=== PATIENT | male | born 1990 ===

== ENCOUNTER 2020-05-03 00:56 | Observation (INO) | payer OTHER ==
--- NOTE | 2020-05-03 01:01 | Emergency Department Report ---
Blank Doc - Documentation Documentation: 29-year-old male that presents with right-sided facial drooping and right-sided weakness that occurred (2 hours prior to arrival). 1- This initial assessment/diagnostic orders/clinical plan/ treatment(s) is/are subject to change based on pt's health status, clinical progression and re- assessment by fellow clinical providers in the ED. Further treatment and workup at subsequent clinical provers discretion. Patient/guardians urged not to elope from ED as their condition may be serious if not clinically assessed and managed. 2-stroke protocol initiated
[2020-05-03 01:17] LABS: Basophils # (Auto) 0.1 K/mm3 (0.0-0.1); Basophils % (Auto) 0.9 % (0.0-1.8); Eosinophils # (Auto) 0.2 K/mm3 (0.0-0.4); Eosinophils % (Auto) 1.6 % (0.0-4.3); Hematocrit 46.1 % (35.5-45.6); Hemoglobin 15.9 gm/dl (11.8-15.2); Lymphocytes # (Auto) 2.6 K/mm3 (1.2-5.4); Lymphocytes % (Auto) 25.5 % (13.4-35.0); Mean Corpuscular HGB Conc 35 % (32-34); Mean Corpuscular Volume 88 fl (84-94); Monocytes # (Auto) 0.8 K/mm3 (0.0-0.8); Monocytes % (Auto) 7.7 % (0.0-7.3); Platelet Count 261 K/mm3 (140-440); Red Blood Count 5.26 M/mm3 (3.65-5.03); Red Cell Distribution Width 13.4 % (13.2-15.2)
--- NOTE | 2020-05-03 01:32 | Cat Scan Report ---
CT HEAD WITHOUT CONTRAST INDICATION / CLINICAL INFORMATION: CODE STROKE PROTOCOL!!! Stroke-Like symptoms. Right-sided weakness . TECHNIQUE: All CT scans at this location are performed using CT dose reduction for ALARA by means of automated exposure control. COMPARISON: None available. FINDINGS: HEMORRHAGE: None. EXTRA-AXIAL SPACES: Cystic lesion in the anterior right middle cranial fossa adjacent to the anterior temporal lobe likely representing benign arachnoid cyst. VENTRICULAR SYSTEM: Normal in size and morphology for the patient's age. CEREBRAL PARENCHYMA: No significant abnormality. No acute territorial infarct. MIDLINE SHIFT / HERNIATION: None. CEREBELLUM / BRAINSTEM: No significant abnormality. ORBITS: Normal as visualized. SOFT TISSUES: No significant abnormality. SKULL: No significant abnormality. PARANASAL SINUSES / MASTOID AIR CELLS: Normal as visualized. ADDITIONAL FINDINGS: None. IMPRESSION: 1. No acute intracranial abnormality. 2. Probable benign arachnoid cyst in the anterior right middle cranial fossa. CODE STROKE: Time of Communication ([employer]ING [employer] LEADER/CDT): 12:27 AM Licensed Practitioner Receiving Report: Dr. Oviedo in the ED Signer Name: Muriel Esquivel MD Signed: 05/03/2020 1:28 AM Workstation Name: [id number]
[2020-05-03 01:37] LABS: Creatine Kinase MB 4.9 ng/mL (0.0-4.0); INR 0.91 (0.87-1.13)
[2020-05-03 01:38] LABS: Alanine Aminotransferase 15 units/L (7-56); Albumin 4.8 g/dL (3.9-5); BUN/Creatinine Ratio 13; Blood Urea Nitrogen 12 mg/dL (9-20); Calcium 9.4 mg/dL (8.4-10.2); Hemolysis Index 5; Partial Thromboplastin Time 31.1 Sec. (24.2-36.6); Thrombin Time 17.9 Sec. (15.1-19.6)
--- NOTE | 2020-05-03 01:53 | Emergency Department Report ---
ED Neuro Deficit HPI - General Chief Complaint: Neuro Symptoms/Deficit Stated Complaint: STROKE ALERT Time Seen by Provider: 05/03/20 00:59 Source: patient, family Mode of arrival: Ambulatory Limitations: Physical Limitation - History of Present Illness Initial Comments: [facility] TeleStroke Metrics: LKW: 2300 Door Time: 0056 [facility] Contacted: 0057 [facility] at Bedside: 0102 NIHSS: 0133 Decision on Alteplase: Patient has declined IV alteplase administration due to concerns of internal bleeding. He has opted for a more conservative approach. Interventional Candidate: Not a candidate as his symptoms are not consistent with a large vessel proximal occlusion. Chief Complaint: Left-sided facial spasm, left-sided neck pain, and left arm weakness. HPI: Asked to see this patient in emergent telemedicine consultation utilizing interactive audio and video technologies. Consultation was performed with assistance of ancillary / medical staff at bedside. Verbal consent to perform the examination with telemedicine was obtained. Patient agreed to proceed with the consultation for acute stroke protocol. 29-year-old right-handed male who comes to the emergency room with his [id number] for acute left facial cramping and left arm weakness. Patient does not take any blood thinners or aspirin. He is on no medications. He denies any significant past medical history. However, [id number] noted that he had some type of heart problem that was worked up in the past. Patient has never had a stroke or migraine headache before. Patient is an active smoker, and also uses methamphetamines. Slovenian translation was assisted through the ER team and [id number]. Apparently, the patient was on FaceTime with his mother at around 11 PM. He then got some bad news and afterwards became acutely short of breath and hot all over. He then developed left-sided neck cramping which then radiated into both his legs. He then at some point developed left arm weakness, and the left side of his face appeared twisted and he was having spasms. He also developed left facial numbness and numbness along the left side of his tongue. [id number] brought him to the emergency room for further evaluation. Patient has never had symptoms like this before. Currently on examination, the patient was completely ambulatory on his own. He was able to transfer and walk from his wheelchair to the CT scanner table. He was able to follow commands. He had no focal motor or sensory deficits in his arms or legs. He appeared to have some type of spasm in the left lower facial area. When I asked him to smile, he would not open his mouth or smile at all. However he was able to stick out his tongue and it was midline. He still reported cramping and pain along the left side of his neck. He also still reported left facial numbness. Head CT showed no acute findings. I reviewed with the patient and his family about the availability of IV alteplase. I reviewed with him about some of the potential side effects of IV alteplase to include an approximate 6% risk of symptomatic intracranial hemorrhage, internal bleeding, and/or angioedema. At the end of the day, patient has declined IV alteplase administration due to concerns of internal bleeding. He has opted for a more conservative approach. PMH: Denies. SOC: Positive for tobacco abuse, alcohol use, and methamphetamine use. He normally lives alone. FMH: Maternal grandmother with a stroke before. ROS: 13 point review of systems were reviewed with the patient, and are all negative with the exception of the aforementioned in the history of present illness. VS: Nothing charted yet Exam: Patient is in no apparent distress. Patient appears as stated age. No obvious acute respiratory or cardiac distress. Patient is well groomed and well-nourished. 1a- LOC: Keenly responsive - 0 1b- LOC questions: Answers both questions correctly - 0 1c- LOC commands- Performs both tasks correctly- 0 2- Gaze: Normal; no gaze paresis or gaze deviation - 0 3- Visual Blanchard: normal, no Visual field deficit - 0 4- Facial movements: left facial palsy - 1 5- Upper limb motor No arm drift - 0 6- Lower limb motor No leg drift - 0 7- Limb Coordination: absent ataxia - 0 8- Sensory: left facial sensory loss - 1 9- Language - No aphasia - 0 10- Speech - moderate dysarthria - 1 11- Neglect / Extinction - none found - 0 NIHSS score: 3 Diagnostic Data: CT head showed no acute intracranial hemorrhage, mass, or large territory stroke. There is an incidental arachnoid cyst within the right middle cranial fossa. Blood glucose 86 Medical Data Reviewed: 1.Data?reviewed include clinical labs, radiology,?and medical tests; 2.Tests?results discussed w/performing or interpreting physician; 3.Obtaining/reviewing old medical records; 4.Obtaining?case history from another source; 5.Independent?review of image, tracing, or specimen. Medical Decision Making: - Extensive number of diagnosis or management options are considered below. - Extensive amount of complex data reviewed. - High risk of complication and/or morbidity or mortality are associated with differential diagnostic considerations below. - There may be?uncertain?outcome and increased probability of prolonged functional impairment or high probability of severe prolonged functional impairment associated with some of these differential diagnosis. Differential Diagnosis for Stroke: 1.?Cardioembolic?stroke 2. Small vessel disease/lacune 3. Thromboembolic, xkkabu-gb-ebncod mechanism 4.?Hypercoagulable?state-related infarct 5. Transient ischemic attack 6. Thrombotic mechanism, large artery disease Assessment: 1. Left facial spasm and numbness 2. Left-sided neck pain and spasms 3. Polysubstance abuse with tobacco and methamphetamine abuse Recommendations: Patient can be admitted to the hospital for further work-up of his symptoms Consult inpatient neurology team to assist with the evaluation and management Check MRI brain with and without contrast to rule out any acute intracranial process or inflammatory process Check MRI cervical spine with and without contrast to rule out any acute cervical cord process or inflammatory process Check hemoglobin A1c, lipid panel, urine drug screen, total CPK, and ESR Consult speech therapy Check echocardiogram to gauge his cardiac function Maintain the patient on telemetry to look for paroxysmal cardiac arrhythmias Continue supportive care Plan of care was discussed with the patient and his [id number]-[id number] Thank you for allowing [facility] to participate in the care of your patient. Please call me, Dr. Gibson, with any questions at [phone]. Case discussed with the ER staff and Dr. Oviedo. Critical Care notation: I was called to see this critical patient emergently. I personally evaluated this critical patient for acute stroke evaluation, and determining their eligibility for IV Alteplase and interventional therapies. I have spent approximately 37 minutes with the patient, including time at bedside, time discussing the case with other physicians, reviewing plan of care, and time independently reviewing the records and scans. ED Review of Systems ROS: Stated complaint: STROKE ALERT Other details as noted in HPI ED Neuro Physical Exam - General Limitations: Physical Limitation Suspected Stroke: No ED Course Vital Signs 05/03/20 01:01 Temperature 97.9 F Pulse Rate 102 H Respiratory 16 Rate Blood Pressure 145/88 [Right] O2 Sat by Pulse 95 Oximetry - Lab Data Result diagrams: 05/03/20 01:05 05/03/20 01:05 Lab Results 05/03/20 05/03/20 05/03/20 Range/Units 00:58 01:05 01:05 WBC 10.2 (4.5-11.0) K/mm3 RBC 5.26 H (3.65-5.03) M/mm3 Hgb 15.9 H (11.8-15.2) gm/dl Hct 46.1 H (35.5-45.6) % MCV 88 (84-94) fl MCH 30 (28-32) pg MCHC 35 H (32-34) % RDW 13.4 (13.2-15.2) % Plt Count 261 (140-440) K/mm3 Lymph % (Auto) 25.5 (13.4-35.0) % [place] % (Auto) 7.7 H (0.0-7.3) % Eos % (Auto) 1.6 (0.0-4.3) % Baso % (Auto) 0.9 (0.0-1.8) % Lymph # (Auto) 2.6 (1.2-5.4) K/mm3 [place] # (Auto) 0.8 (0.0-0.8) K/mm3 Eos # (Auto) 0.2 (0.0-0.4) K/mm3 Baso # (Auto) 0.1 (0.0-0.1) K/mm3 Seg Neutrophils % 64.3 (40.0-70.0) % Seg Neutrophils # 6.5 (1.8-7.7) K/mm3 PT 12.1 L (12.2-14.9) Sec. INR 0.91 (0.87-1.13) APTT 31.1 (24.2-36.6) Sec. Thrombin Time 17.9 (15.1-19.6) Sec. Sodium (137-145) mmol/L Potassium (3.6-5.0) mmol/L Chloride (98-107) mmol/L Carbon Dioxide (22-30) mmol/L Anion Gap mmol/L BUN (9-20) mg/dL Creatinine (0.8-1.3) mg/dL Estimated GFR ml/min BUN/Creatinine Ratio % Glucose (75-100) mg/dL POC Glucose 86 (70-105) mg/dL Calcium (8.4-10.2) mg/dL Total Bilirubin (0.1-1.2) mg/dL AST (5-40) units/L ALT (7-56) units/L Alkaline Phosphatase (35-129) units/L Total Creatine Kinase (55-170) units/L CK-MB (CK-2) (0.0-4.0) ng/mL CK-MB (CK-2) Rel Index (0-4) Troponin T (0.00-0.029) ng/mL Total Protein (6.3-8.2) g/dL Albumin (3.9-5) g/dL Albumin/Globulin Ratio % Plasma/Serum Alcohol (0-0.07) % 05/03/20 05/03/20 05/03/20 Range/Units 01:05 01:05 01:05 WBC (4.5-11.0) K/mm3 RBC (3.65-5.03) M/mm3 Hgb (11.8-15.2) gm/dl Hct (35.5-45.6) % MCV (84-94) fl MCH (28-32) pg MCHC (32-34) % RDW (13.2-15.2) % Plt Count (140-440) K/mm3 Lymph % (Auto) (13.4-35.0) % [place] % (Auto) (0.0-7.3) % Eos % (Auto) (0.0-4.3) % Baso % (Auto) (0.0-1.8) % Lymph # (Auto) (1.2-5.4) K/mm3 [place] # (Auto) (0.0-0.8) K/mm3 Eos # (Auto) (0.0-0.4) K/mm3 Baso # (Auto) (0.0-0.1) K/mm3 Seg Neutrophils % (40.0-70.0) % Seg Neutrophils # (1.8-7.7) K/mm3 PT (12.2-14.9) Sec. INR (0.87-1.13) APTT (24.2-36.6) Sec. Thrombin Time (15.1-19.6) Sec. Sodium 138 (137-145) mmol/L Potassium 3.6 (3.6-5.0) mmol/L Chloride 102.2 (98-107) mmol/L Carbon Dioxide 21 L (22-30) mmol/L Anion Gap 18 mmol/L BUN 12 (9-20) mg/dL Creatinine 0.9 (0.8-1.3) mg/dL Estimated GFR > 60 ml/min BUN/Creatinine Ratio 13 % Glucose 99 (75-100) mg/dL POC Glucose (70-105) mg/dL Calcium 9.4 (8.4-10.2) mg/dL Total Bilirubin 0.20 (0.1-1.2) mg/dL AST 25 (5-40) units/L ALT 15 (7-56) units/L Alkaline Phosphatase 100 (35-129) units/L Total Creatine Kinase 211 H (55-170) units/L CK-MB (CK-2) 4.9 H (0.0-4.0) ng/mL CK-MB (CK-2) Rel Index 2.3 (0-4) Troponin T < 0.010 (0.00-0.029) ng/mL Total Protein 8.0 (6.3-8.2) g/dL Albumin 4.8 (3.9-5) g/dL Albumin/Globulin Ratio 1.5 % Plasma/Serum Alcohol 0.05 (0-0.07) % Critical care attestation.: If time is entered above; I have spent that time in minutes in the direct care of this critically ill patient, excluding procedure time. ED Disposition Clinical Impression: Muscle spasm Disposition: OP ADMIT IP TO THIS HOSP Is pt being admited?: Yes Does the pt Need Aspirin: No Condition: Stable
--- NOTE | 2020-05-03 02:05 | Cat Scan Report ---
CT angio head INDICATION / CLINICAL INFORMATION: 29 years Male; Post-Code Stroke Protocol!!! Stroke-Like Symptoms. TECHNIQUE: Thin cut axial images obtained through the head during IV bolus contrast administration. S agittal, coronal, and 3 plane MIP reconstructions performed by the technologist. NASCET type criteria used evaluate stenoses. Automated exposure control utilized for radiation reduction purposes. Is dulce maria e degree of motion artifact. COMPARISON: CT-same day FINDINGS: INTERNAL CAROTID ARTERIES: No significant narrowing appreciated. VERTEBROBASILAR SYSTEM: No significant narrowing appreciated. DISTAL BRANCHES: Distal branches of the anterior, middle, and posterior cerebral arteries are fairly symmetric in appearance and number. Because of motion, its difficult to evaluate for small areas of stenoses and more peripheral branches , particularly in the mid to distal M1 and MCA trifurcation regions, bilaterally-right greater than l eft. Thrombus in these regions cannot entirely be excluded. ANEURYSM: None identified. ADDITIONAL FINDINGS: Remainder of the surrounding soft tissues are grossly normal. IMPRESSION: 1. No dominant stenosis seen. 2. The possibility of some component of thrombus in the distal M1 and right MCA trifurcation region c annot entirely be excluded, although believe this finding is most likely related to artifact Signer Name: Bird Ring MD, III Signed: 05/03/2020 2:00 AM Workstation Name: [id number]
--- NOTE | 2020-05-03 02:07 | Cat Scan Report ---
CT angio neck INDICATION / CLINICAL INFORMATION: 29 years Male; Post-Code Stroke Protocol!!! Stroke-Like Symptoms. TECHNIQUE: Thin cut axial images obtained through the head during IV bolus contrast administration. S agittal, coronal, and 3 plane MIP reconstructions performed by the technologist. NASCET type criteria used evaluate stenoses. All CT scans at this location are performed using CT dose reduction for ALAR A by means of automated exposure control. Some motion artifact present. COMPARISON: None available. FINDINGS: ARCH: Bovine arch configuration noted. CAROTID ARTERIES: The visualized common and internal carotid arteries are widely patent. VERTEBRAL ARTERIES: Codominant vertebral system seen. No significant stenosis appreciated. ADDITIONAL FINDINGS: Remainder of the surrounding soft tissues are grossly normal. IMPRESSION: No significant stenosis appreciated on this CTA of the neck. Signer Name: Bird Ring MD, III Signed: 05/03/2020 2:02 AM Workstation Name: [id number]
--- NOTE | 2020-05-03 03:01 | Emergency Department Report ---
HPI - General Chief Complaint: Neuro Symptoms/Deficit Time Seen by Provider: 05/03/20 00:59 - HPI HPI: Room 36 The patient is a 29-year-old male present with a chief complaint of left-sided weakness. The patient was reportedly on the telephone when he got some "bad news." The patient began to feel short of breath and then hot and then developed pain in his neck. Patient did complain of bilateral lower extremity pain and left upper extremity weakness. The patient states his left face became numb and the left side of his tongue became numb. Symptoms began at 23: 00 this evening. The patient admits to methamphetamine use and states he last used this afternoon at approximately 15:30 ED Past Medical Hx - Past Medical History Previous Medical History?: Yes Additional medical history: "heart condition, unknown" - Surgical History Past Surgical History?: No - Family History Family history: no significant - Social History Smoking Status: Current Some Day Smoker Substance Use Type: Alcohol (Binge drinks), Methamphetamines ED Review of Systems ROS: Stated complaint: STROKE ALERT Other details as noted in HPI Constitutional: no symptoms reported Eyes: denies: eye pain ENT: denies: throat pain Respiratory: shortness of breath Cardiovascular: denies: chest pain Endocrine: no symptoms reported Gastrointestinal: denies: abdominal pain Genitourinary: denies: dysuria Musculoskeletal: myalgia Neurological: weakness, numbness Physical Exam - Physical Exam Vital Signs: Vital Signs 05/03/20 05/03/20 01:01 02:28 Temperature 97.9 F Pulse Rate 102 H 85 Respiratory 16 18 Rate Blood Pressure 125/77 Blood Pressure 145/88 [Right] O2 Sat by Pulse 95 98 Oximetry Physical Exam: GENERAL: The patient is well-developed well-nourished male lying on stretcher not appearing to be in acute distress. [] HEENT: Normocephalic. Atraumatic. Extraocular motions are intact. Patient keeps mouth twisted to the left. NECK: Supple. Trachea midline CHEST/LUNGS: Clear to auscultation. There is no respiratory distress noted. HEART/CARDIOVASCULAR: Regular. There is no tachycardia. There is no gallop rub or murmur. ABDOMEN: Abdomen is soft, nontender. Patient has normal bowel sounds. There is no abdominal distention. SKIN: There is no rash. There is no edema. There is no diaphoresis. NEURO: The patient is awake, alert, and oriented. The patient is cooperative. Cranial nerves II through XII grossly intact with exception of cranial nerve #7 as patient keeps his mouth twisted to the left. Tongue is midline. The patient has normal speech. NIHSS = 3 MUSCULOSKELETAL: There is no evidence of acute injury. ED Course Vital Signs 05/03/20 05/03/20 01:01 02:28 Temperature 97.9 F Pulse Rate 102 H 85 Respiratory 16 18 Rate Blood Pressure 125/77 Blood Pressure 145/88 [Right] O2 Sat by Pulse 95 98 Oximetry - Consultations Consultation #1: 05/03/20 Case discussed with [id number] TPA. ED Medical Decision Making - Lab Data Result diagrams: 05/03/20 01:05 05/03/20 01:05 Laboratory Tests 05/03/20 05/03/20 05/03/20 00:58 01:05 01:05 WBC 10.2 RBC 5.26 H Hgb 15.9 H Hct 46.1 H MCV 88 MCH 30 MCHC 35 H RDW 13.4 Plt Count 261 Lymph % (Auto) 25.5 Henderson % (Auto) 7.7 H Eos % (Auto) 1.6 Baso % (Auto) 0.9 Lymph # (Auto) 2.6 Henderson # (Auto) 0.8 Eos # (Auto) 0.2 Baso # (Auto) 0.1 Seg Neutrophils % 64.3 Seg Neutrophils # 6.5 PT 12.1 L INR 0.91 APTT 31.1 Thrombin Time 17.9 Sodium Potassium Chloride Carbon Dioxide Anion Gap BUN Creatinine Estimated GFR BUN/Creatinine Ratio Glucose POC Glucose 86 Calcium Total Bilirubin AST ALT Alkaline Phosphatase Total Creatine Kinase CK-MB (CK-2) CK-MB (CK-2) Rel Index Troponin T Total Protein Albumin Albumin/Globulin Ratio Plasma/Serum Alcohol 05/03/20 05/03/20 05/03/20 01:05 01:05 01:05 WBC RBC Hgb Hct MCV MCH MCHC RDW Plt Count Lymph % (Auto) Henderson % (Auto) Eos % (Auto) Baso % (Auto) Lymph # (Auto) Henderson # (Auto) Eos # (Auto) Baso # (Auto) Seg Neutrophils % Seg Neutrophils # PT INR APTT Thrombin Time Sodium 138 Potassium 3.6 Chloride 102.2 Carbon Dioxide 21 L Anion Gap 18 BUN 12 Creatinine 0.9 Estimated GFR > 60 BUN/Creatinine Ratio 13 Glucose 99 POC Glucose Calcium 9.4 Total Bilirubin 0.20 AST 25 ALT 15 Alkaline Phosphatase 100 Total Creatine Kinase 211 H CK-MB (CK-2) 4.9 H CK-MB (CK-2) Rel Index 2.3 Troponin T < 0.010 Total Protein 8.0 Albumin 4.8 Albumin/Globulin Ratio 1.5 Plasma/Serum Alcohol 0.05 - EKG Data -: EKG Interpreted by Tn EKG shows normal: sinus rhythm Rate: normal - EKG Data When compared to previous EKG there are: previous EKG unavailable Interpretation: other (No ischemic changes seen) - Radiology Data Radiology results: report reviewed (CT head, CTA head, CTA neck), image reviewed (CT head, CTA head, CTA neck) [facility] [address] [place] [address] Cat Scan Report Signed Patient: TALYA FOWLER MR#: [id number] : 1990 Acct:[id number] Age/Sex: 29 / M ADM Date: 05/03/20 Loc: ED Attending Dr: Ordering Physician: ARISTEO JOSE NP Date of Service: 05/03/20 Procedure(s): CT head/brain wo con Accession Number(s): [id number] cc: ARISTEO JOSE NP CT HEAD WITHOUT CONTRAST INDICATION / CLINICAL INFORMATION: CODE STROKE PROTOCOL!!! Stroke-Like symptoms. Right-sided weakness. TECHNIQUE: All CT scans at this location are performed using CT dose reduction for ALARA by means of automated exposure control. COMPARISON: None available. FINDINGS: HEMORRHAGE: None. EXTRA-AXIAL SPACES: Cystic lesion in the anterior right middle cranial fossa adjacent to the anterior temporal lobe likely representing benign arachnoid cyst. VENTRICULAR SYSTEM: Normal in size and morphology for the patient's age. CEREBRAL PARENCHYMA: No significant abnormality. No acute ter ritorial infarct. MIDLINE SHIFT / HERNIATION: None. CEREBELLUM / BRAINSTEM: No significant abnormality. ORBITS: Normal as visualized. SOFT TISSUES: No significant abnormality. SKULL: No significant abnormality. PARANASAL SINUSES / MASTOID AIR CELLS: Normal as visualized. ADDITIONAL FINDINGS: None. IMPRESSION: 1. No acute intracranial abnormality. 2. Probable benign arachnoid cyst in the anterior right middle cranial fossa. CODE STROKE: Time of Communication (WARM IN/CDT): 12:27 AM Licensed Practitioner Receiving Report: Dr. Oviedo in the ED Signer Name: Muriel Esquivel MD Signed: 05/03/2020 1:28 AM Workstation Name: [id number] Transcribed By: DT Dictated By: Mamadou Esquivel MD Electronically Authenticated By: Mamadou Esquivel MD Signed Date/Time: 05/03/20127 DD/ 1 TD/TT: [facility] [address] [place] [address] Cat Scan Report Signed Patient: TALYA FOWLER MR#: [id number] : 1990 Acct:[id number] Age/Sex: 29 / M ADM Date: 05/03/20 Loc: ED Attending Dr: Ordering Physician: ARISTEO JOSE NP Date of Service: 05/03/20 Procedure(s): CT angio head Accession Number(s): [id number] cc: ARISTEO JOSE NP CT angio head INDICATION / CLINICAL INFORMATION: 29 years Male; Post-Code Stroke Protocol!!! Stroke-Like Symptoms. TECHNIQUE: Thin cut axial images obtained through the head during IV bolus contrast administration. Sagittal, coronal, and 3 plane MIP reconstructions performed by the technologist. NASCET type criteria used evaluate stenoses. Automated exposure control utilized for radiation reduction purposes. Is some degree of motion artifact. COMPARISON: CT-same day FINDINGS: INTERNAL CAROTID ARTERIES: No significant narrowing appreciated. VERTEBROBASILAR SYSTEM: No significant narrowing appreciated. DISTAL BRANCHES: Distal branches of the anterior, middle, and posterior cerebral arteries are fairly symmetric in appearance and number. Because of motion, its difficult to evaluate for small areas of stenoses and more peripheral branches, particularly in the mid to distal M1 and MCA trifurcation regions, bilaterally-right greater than left. Thrombus in these regions cannot entirely be excluded. ANEURYSM: None identified. ADDITIONAL FINDINGS: Remainder of the surrounding soft tissues are grossly normal. IMPRESSION: 1. No dominant stenosis seen. 2. The possibility of some component of thrombus in the distal M1 and right MCA trifurcation region cannot entirely be excluded, although believe this finding is most likely related to artifact Signer Name: Bird Ring MD, III Signed: 05/03/2020 2:00 AM Workstation Name: [id number] Transcribed By: HR Dictated By: Bird Ring MD Electronically Authenticated By: Bird Ring MD Signed Date/Time: 05/03/20199 DD/ 8 TD/TT: [facility] [address] [address] Cat Scan Report Signed Patient: TALYA FOWLER MR#: [id number] : 1990 Acct:[id number] Age/Sex: 29 / M ADM Date: 05/03/20 Loc: ED Attending Dr: Ordering Physician: ARISTEO JOSE NP Date of Service: 05/03/20 Procedure(s): CT angio neck Accession Number(s): [id number] cc: ARISTEO JOSE NP CT angio neck INDICATION / CLINICAL INFORMATION: 29 years Male; Post-Code Stroke Protocol!!! Stroke-Like Symptoms. TECHNIQUE: Thin cut axial images obtained through the head during IV bolus contrast administration. Sagittal, coronal, and 3 plane MIP reconstructions performed by the technologist. NASCET type criteria used evaluate stenoses. All CT scans at this location are performed using CT dose reduction for ALARA by means of automated exposure control. Some motion artifact present. COMPARISON: None available. FINDINGS: ARCH: Bovine arch configuration noted. CAROTID ARTERIES: The visualized common and internal carotid arteries are widely patent. VERTEBRAL ARTERIES: Codominant vertebral system seen. No significant stenosis appreciated. ADDITIONAL FINDINGS: Remainder of the surrounding soft tissues are grossly normal. IMPRESSION: No significant stenosis appreciated on this CTA of the neck. Signer Name: Bird Ring MD, III Signed: 05/03/2020 2:02 AM Workstation Name: [id number] Transcribed By: HR Dictated By: Bird Ring MD Electronically Authenticated By: Bidr Ring MD Signed Date/Time: 05/03/20201 DD/ 0200 TD/TT: - Differential Diagnosis Conversion disorder, CVA, malingering, substance abuse Critical care attestation.: If time is entered above; I have spent that time in minutes in the direct care of this critically ill patient, excluding procedure time. ED Disposition Clinical Impression: Muscle spasm Disposition: OP ADMIT IP TO THIS HOSP Is pt being admited?: Yes Does the pt Need Aspirin: Yes Condition: Fair Referrals: PRIMARY CARE,MD [Primary Care Provider] - 3-5 Days Time of Disposition: 03:06 (Hospitalist notified (NELIDA Rollins))
[2020-05-03 03:22] LABS: Bilirubin,Urine NEG (Negative); Blood,Urine NEG (Negative); Color,Urine Straw (Yellow); Protein,Urine <15 mg/dL mg/dL (Negative); Urobilinogen,Urine < 2.0 mg/dL (<2.0); WBC,Urine < 1.0 /HPF (0.0-6.0)
[2020-05-03] MEDS ORDERED: NICOTINE 14 MG/24 HR PATCH TD PRN (03:26)
[2020-05-03] MEDS ORDERED: ONDANSETRON 4 MG/2 ML INJ IV PRN (03:28)
[2020-05-03] MEDS ORDERED: MAGNESIUM HYDROXIDE (MOM) ORAL LIQD UDC PO PRN (03:28)
[2020-05-03] MEDS ORDERED: ACETAMINOPHEN 325 MG TAB PO PRN (03:28)
[2020-05-03] MEDS ORDERED: NALOXONE 0.4 MG/1 ML INJ IV PRN (03:28)
[2020-05-03 03:44] LABS: Amphetamine Screen,Urine PRESUMPTIVE POSITIVE; Benzodiazepines Screen,Urine PRESUMPTIVE NEGATIVE; Cannabinoid Screen,Urine PRESUMPTIVE NEGATIVE; Cocaine Screen,Urine PRESUMPTIVE NEGATIVE; Methadone Screen,Urine PRESUMPTIVE NEGATIVE; Opiate Screen,Urine PRESUMPTIVE NEGATIVE
[2020-05-03] MEDS ORDERED: SODIUM CHLORIDE 0.45% 1000 ML 1,000 ML IV SCH (04:00)
--- NOTE | 2020-05-03 04:38 | History and Physical Report ---
History of Present Illness Date of examination: 05/03/20 Date of admission: 05/03/20 03:08 Chief complaint: acute left facial cramping and left arm weakness History of present illness: 29-year-old male with history of methamphetamine abuse and tobacco abuse, who presents to [facility] ED with complaints of left facial cramping and left arm weakness. Of note patient does not speak Telugu. History was obtained via review of medical records, and cdl a driver via language line. Per patient's [id number] patient had history of "heart problem" in the past. Patient reports being on FaceTime with his mother around 11 PM when he received some bad news, and shortly after he became short of breath and felt flushed. He developed left sided neck cramping with radiation to bilateral lower extremity, followed by left arm weakness and left sided facial spasm. Patient was brought to the ED by his [id number]. Patient was seen and evaluated by teleneurology recommendations appreciated. At the time of my assessment patient is on stretcher alert, oriented x3. During my evaluation patient was asked to remove mask smile to check for facial symmetry. Put made a poor attempt to do so. Pt was then as to open his mouth and stick out his tongue, and tongue is midline. Also when pt talks to respond to cdl a driver his facial expressions are symmetrical. Denies nausea, vomiting, diarrhea, fever, chills, sore throat, headache, chest p ain, palpitations, shortness of breath, abdominal pain, alterations in gait, visual changes, SI/HI, or recent sick contacts Past History Past Medical History: other (Denies past medical history) Past Surgical History: Other (Denies surgical history) Social history: single (Live with roommates/friends), full code, other (Tobacco abuse, meth amphetamine abuse, alcohol use). denies: IV drug use Family history: no significant family history Medications and Allergies Allergies Allergy/AdvReac Type Severity Reaction Status Date / Time No Known Allergies Allergy Unverified 05/03/20 03:48 Active Meds: Active Medications Acetaminophen (Acetaminophen 325 Mg Tab) 650 mg PO Q4H PRN PRN Reason: Pain, Mild (1-3) Atorvastatin Calcium (Atorvastatin 40 Mg Tab) 40 mg PO QHS MADINA Bisacodyl (Bisacodyl 10 Mg Rect Supp) 10 mg HI QDAY PRN PRN Reason: Constipation Docusate Sodium (Docusate Sodium 100 Mg Cap) 100 mg PO BID MADINA Sodium Chloride (Nacl 0.45% 1000 Ml) 1,000 mls @ 75 mls/hr IV DIRECT MADINA Stop: 05/03/20 12:00 Magnesium Hydroxide (Magnesium Hydroxide (Mom) Oral Liqd Udc) 30 ml PO Q4H PRN PRN Reason: Constipation Naloxone HCl (Naloxone 0.4 Mg/1 Ml Inj) 0.1 mg IV Q2MIN PRN PRN Reason: Res Rate </= 8 or 02 SAT < 92% Nicotine (Nicotine 14 Mg/24 Hr Patch) 14 mg TD QDAY PRN PRN Reason: smoking cessation Ondansetron HCl (Ondansetron 4 Mg/2 Ml Inj) 4 mg IV Q6H PRN PRN Reason: Nausea And Vomiting Sodium Chloride (Sodium Chloride 0.9% 10 Ml Flush Syringe) 10 ml IV PRN PRN PRN Reason: LINE FLUSH Review of Systems All systems: negative (As noted in HPI) Exam - Physical Exam Narrative exam: Physical exam General appearance: Present: No acute distress, alert and oriented 3, [place] Zealander- speaking adult male - EENT Eyes: Present: PERRL, EOM intact ENT: hearing intact, normal dentition - Neck Neck: Present: supple, normal ROM - Respiratory Respiratory effort: Non-labored Respiratory: Clear throughout - Cardiovascular Heart rate: 90 (bpm) Rhythm: Sinus Heart Sounds: Present: S1 & S2. Absent: rub, click - Extremities Extremities: no ischemia, pulses intact, - Peripheral Assessment Peripheral Pulses: within normal limits - Abdominal General gastrointestinal: soft, non-tender, normal bowel sounds - Integumentary Integumentary: Present: warm, dry - Musculoskeletal Musculoskeletal: Able to move all extremities -Neurological Neurological: CN II-XII intact - Psychiatric Psychiatric: cooperative - Constitutional Vitals: Temp Pulse Resp BP Pulse Ox 97.9 F 86 20 131/72 99 05/03/20 01:01 05/03/20 04:00 05/03/20 04:00 05/03/20 04:00 05/03/20 04:00 HEART Score - HEART Score Troponin: Troponin T < 0.010 ng/mL (0.00-0.029) 05/03/20 01:05 Results - Labs CBC & Chem 7: 05/03/20 01:05 05/03/20 01:05 Labs: Laboratory Last Values WBC 10.2 K/mm3 (4.5-11.0) 05/03/20 01:05 RBC 5.26 M/mm3 (3.65-5.03) H 05/03/20 01:05 Hgb 15.9 gm/dl (11.8-15.2) H 05/03/20 01:05 Hct 46.1 % (35.5-45.6) H 05/03/20 01:05 MCV 88 fl (84-94) 05/03/20 01:05 MCH 30 pg (28-32) 05/03/20 01:05 MCHC 35 % (32-34) H 05/03/20 01:05 RDW 13.4 % (13.2-15.2) 05/03/20 01:05 Plt Count 261 K/mm3 (140-440) 05/03/20 01:05 Lymph % (Auto) 25.5 % (13.4-35.0) 05/03/20 01:05 Camp % (Auto) 7.7 % (0.0-7.3) H 05/03/20 01:05 Eos % (Auto) 1.6 % (0.0-4.3) 05/03/20 01:05 Baso % (Auto) 0.9 % (0.0-1.8) 05/03/20 01:05 Lymph # (Auto) 2.6 K/mm3 (1.2-5.4) 05/03/20 01:05 Camp # (Auto) 0.8 K/mm3 (0.0-0.8) 05/03/20 01:05 Eos # (Auto) 0.2 K/mm3 (0.0-0.4) 05/03/20 01:05 Baso # (Auto) 0.1 K/mm3 (0.0-0.1) 05/03/20 01:05 Seg Neutrophils % 64.3 % (40.0-70.0) 05/03/20 01:05 Seg Neutrophils # 6.5 K/mm3 (1.8-7.7) 05/03/20 01:05 PT 12.1 Sec. (12.2-14.9) L 05/03/20 01:05 INR 0.91 (0.87-1.13) 05/03/20 01:05 APTT 31.1 Sec. (24.2-36.6) 05/03/20 01:05 Thrombin Time 17.9 Sec. (15.1-19.6) 05/03/20 01:05 Sodium 138 mmol/L (137-145) 05/03/20 01:05 Potassium 3.6 mmol/L (3.6-5.0) 05/03/20 01:05 Chloride 102.2 mmol/L (98-107) 05/03/20 01:05 Carbon Dioxide 21 mmol/L (22-30) L 05/03/20 01:05 Anion Gap 18 mmol/L 05/03/20 01:05 BUN 12 mg/dL (9-20) 05/03/20 01:05 Creatinine 0.9 mg/dL (0.8-1.3) 05/03/20 01:05 Estimated GFR > 60 ml/min 05/03/20 01:05 BUN/Creatinine Ratio 13 % 05/03/20 01:05 Glucose 99 mg/dL (75-100) 05/03/20 01:05 POC Glucose 86 mg/dL (70-105) 05/03/20 00:58 Calcium 9.4 mg/dL (8.4-10.2) 05/03/20 01:05 Total Bilirubin 0.20 mg/dL (0.1-1.2) 05/03/20 01:05 AST 25 units/L (5-40) 05/03/20 01:05 ALT 15 units/L (7-56) 05/03/20 01:05 Alkaline Phosphatase 100 units/L (35-129) 05/03/20 01:05 Total Creatine Kinase 211 units/L (55-170) H 05/03/20 01:05 CK-MB (CK-2) 4.9 ng/mL (0.0-4.0) H 05/03/20 01:05 CK-MB (CK-2) Rel Index 2.3 (0-4) 05/03/20 01:05 Troponin T < 0.010 ng/mL (0.00-0.029) 05/03/20 01:05 Total Protein 8.0 g/dL (6.3-8.2) 05/03/20 01:05 Albumin 4.8 g/dL (3.9-5) 05/03/20 01:05 Albumin/Globulin Ratio 1.5 % 05/03/20 01:05 Urine Color Straw (Yellow) 05/03/20 Unknown Urine Turbidity Clear (Clear) 05/03/20 Unknown Urine pH 5.0 (5.0-7.0) 05/03/20 Unknown Ur Specific Stringer 1.016 (1.003-1.030) 05/03/20 Unknown Urine Protein <15 mg/dl mg/dL (Negative) 05/03/20 Unknown Urine Glucose (UA) Neg mg/dL (Negative) 05/03/20 Unknown Urine Ketones Neg mg/dL (Negative) 05/03/20 Unknown Urine Blood Neg (Negative) 05/03/20 Unknown Urine Nitrite Neg (Negative) 05/03/20 Unknown Urine Bilirubin Neg (Negative) 05/03/20 Unknown Urine Urobilinogen < 2.0 mg/dL (<2.0) 05/03/20 Unknown Ur Leukocyte Esterase Neg (Negative) 05/03/20 Unknown Urine WBC (Auto) < 1.0 /HPF (0.0-6.0) 05/03/20 Unknown Urine RBC (Auto) 0.0 /HPF (0.0-6.0) 05/03/20 Unknown Urine Opiates Screen Presumptive negative 05/03/20 Unknown Urine Methadone Screen Presumptive negative 05/03/20 Unknown Ur Barbiturates Screen Presumptive negative 05/03/20 Unknown Ur Phencyclidine Scrn Presumptive negative 05/03/20 Unknown Ur Amphetamines Screen Presumptive positive 05/03/20 Unknown U Benzodiazepines Scrn Presumptive negative 05/03/20 Unknown Urine Cocaine Screen Presumptive negative 05/03/20 Unknown U Marijuana (THC) Screen Presumptive negative 05/03/20 Unknown Drugs of Abuse Note Disclamer 05/03/20 Unknown Plasma/Serum Alcohol 0.05 % (0-0.07) 05/03/20 01:05 - Imaging and Cardiology Imaging and Cardiology: CT Head IMPRESSION: 1. No acute intracranial abnormality. 2. Probable benign arachnoid cyst in the anterior right middle cranial fossa. CT Angio Head IMPRESSION: 1. No dominant stenosis seen. 2. The possibility of some component of thrombus in the distal M1 and right MCA trifurcation region cannot entirely be excluded, although believe this finding is most likely related to artifact CT Angio Neck: IMPRESSION: No significant stenosis appreciated on this CTA of the neck. Assessment and Plan Assessment and plan: CVA -CT Head negative for acute abnormalities -CT angio neck negative for stenosis -CT angio head possibility of some component of thrombus in the distal M1 and right MCA trifurcation -Echo, MRI brain and MRI C-spine pending -Tele-Neurology consulted; recommendations appreciated -Patient refused TPA -Neurology consulted -Neuro Checks -PT/OT eval pending -Speech eval Pending -A1c, lipid panel, UA, U tox pending -Start statin -Hold off on anticoagulation per inpatient neurology recs Arachnoid cyst -Probably benign seen on CT head -Inpatient neurology consulted Methamphetamine abuse -Reports of chronic methamphetamine use -Last used on 05/02 -Monitor for withdrawal -Counseled for cessation Tobacco abuse -Reports daily tobacco use -Nicotine patch as needed -Counseled for cessation VTE prophylaxis?: Mechanical Reason for no VTE Prophylaxis: Medical contraindication Plan of care discussed with patient/family: Yes
[2020-05-03 08:56] VITALS: BP 119/71
[2020-05-03 09:13] LABS: Creatine Kinase MB 3.7 ng/mL (0.0-4.0)
[2020-05-03] MEDS ORDERED: DOCUSATE SODIUM 100 MG CAP PO SCH (10:00)
[2020-05-03] MEDS ORDERED: ASPIRIN 325 MG TAB PO SCH (11:00)
--- NOTE | 2020-05-03 11:27 | Event Note ---
Date: 05/03/20 Patient seen and examined This is the second visit following midnight Denies any acute neurological deficit Patient is ambulatory and denies any weakness or numbness CT head, CTA head/neck unremarkable Troponin negative, pending 2D echo/MRI result UDS is positive for amphetamine Unlikely to be a case for acute CVA -most likely patient experienced acute anxiety attack Neurology consulted, will await for recommendation We will discharge the patient home if cleared by neurology
--- NOTE | 2020-05-03 14:29 | Discharge Summary ---
Providers - Providers Date of Admission: 05/03/20 03:08 Date of discharge: 05/03/20 Attending physician: NAN MAN 05/03/20 03:27 Consult to Physician [CONS] Routine Comment: Consulting Provider: CHAPARRO MG Physician Instructions: Reason For Exam: CVA, neurodeficits 05/03/20 03:29 Occupational Therapy Evaluate and Treat [CONS] Routine Comment: Reason For Exam: Neuro deficits Physical Therapy Evaluation and Treat [CONS] Routine Comment: Reason For Exam: Neuro deficits Primary care physician: SOLUTION DESIGNER Hospitalization Condition: Fair Hospital course: Discharge diagnosis: Acute anxiety attack, resolve Disposition: DC-01 TO HOME OR SELFCARE Time spent for discharge: 34 minutes Core Measure Documentation - Palliative Care Palliative Care/ Comfort Measures: Not Applicable Exam - Constitutional Vitals: Temp Pulse Resp BP Pulse Ox 97.3 F L 81 18 119/71 96 05/03/20 08:52 05/03/20 11:16 05/03/20 08:52 05/03/20 08:52 05/03/20 08:52 Plan Diet: low fat, low salt Follow up with: CLEMENT CRUM MD [Primary Care Provider] - 3-5 Days TENA KOCH MD [Staff Physician] - 7 Days Forms: Discharge Signature Page
--- NOTE | 2020-05-03 14:57 | Consultation ---
History of Present Illness Consult date: 05/03/20 Reason for Consult: CVA Chief complaint: Left sided symptoms History of present illness: 29 yo male who presents w/ acute onset of left facial "spasm", left neck pain and left arm weakness. He notes that currently he is at his baseline. Past History Past Medical History: other (Denies past medical history) Past Surgical History: Other (Denies surgical history) Social history: single (Live with roommates/friends), full code, other (Tobacco abuse, meth amphetamine abuse, alcohol use). denies: IV drug use Family history: no significant family history Medications and Allergies Allergies Allergy/AdvReac Type Severity Reaction Status Date / Time No Known Allergies Allergy Unverified 05/03/20 03:48 Home Medications Medication Instructions Recorded Confirmed Last Taken Type Aspirin EC [Halfprin EC] 81 mg PO QDAY #30 tablet. 05/03/20 Unknown Rx AtorvaSTATin [Lipitor] 40 mg PO QHS #30 tab 05/03/20 Unknown Rx Active Meds: Active Medications Acetaminophen (Acetaminophen 325 Mg Tab) 650 mg PO Q4H PRN PRN Reason: Pain, Mild (1-3) Aspirin (Aspirin 325 Mg Tab) 325 mg PO QDAY [facility] Last Admin: 05/03/20 13:12 Dose: 325 mg Documented by: Atorvastatin Calcium (Atorvastatin 40 Mg Tab) 40 mg PO QHS [facility] Bisacodyl (Bisacodyl 10 Mg Rect Supp) 10 mg NV QDAY PRN PRN Reason: Constipation Docusate Sodium (Docusate Sodium 100 Mg Cap) 100 mg PO BID [facility] Last Admin: 05/03/20 13:12 Dose: 100 mg Documented by: Magnesium Hydroxide (Magnesium Hydroxide (Mom) Oral Liqd Udc) 30 ml PO Q4H PRN PRN Reason: Constipation Naloxone HCl (Naloxone 0.4 Mg/1 Ml Inj) 0.1 mg IV Q2MIN PRN PRN Reason: Res Rate </= 8 or 02 SAT < 92% Nicotine (Nicotine 14 Mg/24 Hr Patch) 14 mg TD QDAY PRN PRN Reason: smoking cessation Ondansetron HCl (Ondansetron 4 Mg/2 Ml Inj) 4 mg IV Q6H PRN PRN Reason: Nausea And Vomiting Sodium Chloride (Sodium Chloride 0.9% 10 Ml Flush Syringe) 10 ml IV PRN PRN PRN Reason: LINE FLUSH Review of Systems All systems: negative (as per HPI;) Physical Examination - Vital Signs Vital Signs: Vital Signs Temp Pulse Resp BP Pulse Ox 97.9 F 102 H 16 145/88 95 05/03/20 01:01 05/03/20 01:01 05/03/20 01:01 05/03/20 01:01 05/03/20 01:01 - Physical Exam Narrative exam: Gen: nad, well-nourished; Head: normocephalic; Eyes: no gaze deviation; no ptosis; ENT: normal vocalization; CVS: warm and well-perfused; Pulm: no respiratory distress; GI: non-distended; Ext: no cyanosis at distal extremities; Skin: no acute rash at distal extremities; Heme: no pathologic bruising or ecchymosis at distal extremities; Neuro: alert, oriented to name, age, month, year, no dysarthria, no aphasia, CN 2 - PERRL, visual dela cruz intact, CN 3, 4, 6 - EOMI, CN 5 - facial sensation symmetric to light touch, CN 7 - facial movement symmetric, CN 8 - hearing grossly intact, CN 9, 10 - uvula midline, CN 11 - shrug symmetric, CN 12 - tongue midline; Motor - at least 4/5 in all exts; Sensory - light touch symm etric, Cerebellar - fnf /hts intact, Gait - deferred secondary to fall risk; NIHSS (1a.) Level of Consciousness:0 (1b.) LOC Questions:0 (1c.) LOC Commands:0 (2.) Best Gaze:0 (3.) Visual:0 (4.) Facial Palsy:0 (5a.) Motor Arm, Left:0 (5b.) Motor Arm, Right:0 (6a.) Motor Leg, Left:0 (6b.) Motor Leg, Right:0 (7.) Limb Ataxia:0 (8.) Sensory:0 (9.) Best Language:0 (10.) Dysarthria:0 (11.) Extinction and Inattention:0 NIHSS Total Score:0 Results - Laboratory Findings CBC and BMP: 05/03/20 01:05 05/03/20 01:05 Abnormal Lab Findings: Abnormal Labs 05/03/20 05/03/20 05/03/20 01:05 01:05 01:05 RBC 5.26 H Hgb 15.9 H Hct 46.1 H MCHC 35 H Moody % (Auto) 7.7 H PT 12.1 L Carbon Dioxide Total Creatine Kinase 211 H CK-MB (CK-2) 4.9 H 05/03/20 01:05 RBC Hgb Hct MCHC Moody % (Auto) PT Carbon Dioxide 21 L Total Creatine Kinase CK-MB (CK-2) Assessment and Plan 29 yo male p/w an anxiety attack. 1. Anxeity Attack / Conversion Disorder - per primary team. Robi Ye MD Neurology
--- NOTE | 2020-05-03 15:15 | Magnetic Resonance Report ---
MRI BRAIN 05/03/2020 INDICATION / CLINICAL INFORMATION: cva. TECHNIQUE: Multiplanar, multisequence MR images of the brain were obtained. COMPARISON: None available. FINDINGS: BRAIN / INTRACRANIAL CONTENTS: Unenhanced MR images of the brain demonstrate no evidence of acute int racranial abnormality. Ventricles and sulci are normal in size and shape. There is no evidence of ischemic injury, demyelination, hemorrhage, or mass. There is a 1.2 x 3.5 cm arachnoid cyst present in the anterior aspect of the right middle cranial fos sa. This is generally considered to be of no clinical significance. EXTRACRANIAL: Unremarkable CRANIOCERVICAL JUNCTION: No significant abnormality. VASCULAR FLOW-VOIDS: No significant abnormality. IMPRESSION: No significant acute abnormality. Signer Name: Timbo Kwan MD Signed: 05/03/2020 3:11 PM Workstation Name: [id number]
== END 2020-05-03 16:40 | disposition home or self-care (01) ==
LOC: ED 00:56 → 4A 03:08
PROVIDERS: ADMIT Internal Medicine Geriatric Medicine; ATTEND Internal Medicine
DX: I63.9 Cerebral infarction, unspecified (principal); G93.0 Cerebral cysts; F15.10 Other stimulant abuse, uncomplicated; R29.703 NIHSS score 3; R29.818 Other symptoms and signs involving the nervous system; F17.210 Nicotine dependence, cigarettes, uncomplicated; F41.9 Anxiety disorder, unspecified; F44.4 Conversion disorder with motor symptom or deficit; Z79.82 Long term (current) use of aspirin; Z79.899 Other long term (current) drug therapy
CPT/HCPCS: 36415; 70450; 70496; 70498; 70551; 80053; 80307; 81001; 82550; 82553; 82962; 83036; 84484; 85025; 85610; 85670; 85730; 93005; 93306; 96360; 96361; 97165; 99291; 99406; G0378; J7030; Q9967; 80320; G0480